=== PATIENT | male | born 2000 | race Caucasian/White ===

== ENCOUNTER 2018-08-13 16:18 | Emergency (ER) | payer OTHER ==
--- NOTE | 2018-08-13 17:14 | EDM.PDOC ---
ED HPI GENERAL MEDICAL PROBLEM - General Chief Complaint: Lower Extremity Injury/Pain Stated Complaint: L KNEE PAIN Time Seen by Provider: 08/13/18 16:30 Source of Information: Reports: Patient History Limitations: Reports: No Limitations - History of Present Illness INITIAL COMMENTS - FREE TEXT/NARRATIVE: Patient presents today with concern for left knee pain. It has been going on since May, and began after he slipped while running on a rich surface in May during one of his [employer] test. He was evaluated at the time and no concerning injury was seen, no x-ray was taken at that time. Sent over today for an x-ray when he was unable to continue running during PT test. He has been using a neoprene sleeve for the past couple of months when he runs, but did not have it with him this weekend. No other previous injuries or concerns with that knee. It does not click, lock or give out. Does not feel unstable. He notices pain is worse when going up hill , minimal pain when coming downhill. He has no other symptoms or concerns today. left knee Pain Score (Numeric/FACES): 6 - Related Data Allergies Allergy/AdvReac Type Severity Reaction Status Date / Time No Known Allergies Allergy Verified 08/13/18 16:33 Home Meds: Home Meds NK [No Known Home Meds] 08/13/18 [History] Past Medical History - Past Health History Medical/Surgical History: Denies Medical/Surgical History Social & Family History - Family History Family Medical History: Noncontributory - Tobacco Use Smoking Status *Q: Current Every Day Smoker Years of Tobacco use: 1 Packs/Tins Daily: 0 - Recreational Drug Use Recreational Drug Use: No - Living Situation & Occupation Occupation: Employed Social History Comment: lives in [place], here for weekend for [employer] Review of Systems - Review of Systems Review Of Systems: ROS reveals no pertinent complaints other than HPI. ED EXAM, GENERAL - Physical Exam Exam: See Below Free Text/Narrative:: Gen.: Alert, extremely pleasant no acute distress. Skin is without erythema over the knee, and no acute swelling is noted. He has good distal circulation and sensation. MSK: no laxity felt on Anterior/posterior drawer testing or varus/valgus stress. He has some pain with anterior drawer, but this seems to be more in the hamstrings. No pain with meniscal compression. Slight pain with resisted flexion and extension. Negative patellar grind. No joint effusion noted. tender in patella and medial side of patella with quadriceps contraction. tender over medial joint line and just distal to it, not quite in area of pes- anserines bursa. Course - Vital Signs Text/Narrative:: X-rays reviewed, no acute fracture seen. Course with patient that his symptoms are most consistent with patellar femoral pain syndrome, likely he had altered his gait somewhat shortly after his injury and then subsequently has not regained consistent firing of his quads. Less likely some kind of ligamentous strain or meniscal injury. Unlikely to be bursitis over that given timeframe, although not impossible, and unlikely to be a muscle tear although may have a small subacute one. Encouraging that he has no signs of swelling today. Leroy wrap provided, subsequently watched patient jogs slightly up and down all and still has slight pain but no obvious limp. Note provided for today excusing him from any further running. He states the only really have classes tomorrow and probably will not be doing any more significant exertion on it. Recommend ice, ibuprofen, gentle stretching wanted warm. Leroy wrap when necessary to help with the pain. Once he returns home, recommended see PCP or a sports medicine clinic for referral to physical therapy and I think he will do well. He is in agreement with this plan and has no further questions Last Recorded V/S: Last Vital Signs Temp 36.5 C 08/13/18 16:20 Pulse 84 08/13/18 16:20 Resp 16 08/13/18 16:20 BP 110/55 L 08/13/18 16:20 Pulse Ox 99 08/13/18 16:20 - Orders/Labs/Meds Orders: Active Orders 24 hr Category Date Time Status Knee Min 4V Lt [CR] Stat Exams 08/13/18 16:35 Taken Departure - Departure Time of Disposition: 17:11 Disposition: Home, Self-Care 01 Preliminary Cause of *Q: Cardiac Arrest Clinical Impression: Left knee pain - Discharge Information *PRESCRIPTION DRUG MONITORING PROGRAM REVIEWED*: Not Applicable *COPY OF PRESCRIPTION DRUG MONITORING REPORT IN PATIENT NAZ: Not Applicable Forms: ED Department Discharge Additional Instructions: no fracture seen on xray suspect patella-femoral pain syndrome--this occurs when the quadriceps muscles are not firing quite properly and the patella doesn't track quite perfectly along the groove. Usually improves rapidly with physical therapy- someone ( family doctor, hip hop performers, sports med clinic) in [place] should be able to refer you ibuprofen ok up to 600-800mg three times per day recommend ice tonight if able. Gentle stretching of hamstrings and quads PRIOR to icing (not after unless all the way re-warmed, such as after hot tub or shower) no additional strenuous exercise or running today or tomorrow leroy wrap as needed for comfort - My Orders Last 24 Hours: My Active Orders 08/13/18 16:35 Knee Min 4V Lt [CR] Stat - Assessment/Plan Last 24 Hours: My Active Orders 08/13/18 16:35 Knee Min 4V Lt [CR] Stat
--- NOTE | 2018-08-15 13:32 | CR ---
INDICATION: Knee pain while running. LEFT KNEE: Standing AP view of both knees with AP, lateral, and patellar sunrise views of the left knee were obtained 08/13/18 and revealed no significant bone or joint abnormality. JULIO CD
== END 2018-08-13 17:15 | disposition home or self-care (01) ==
LOC: FB.ED 16:18
DX: M25.562 Pain in left knee (principal); F17.210 Nicotine dependence, cigarettes, uncomplicated
CPT/HCPCS: 73564-LT; 99283-25